=== PATIENT | male | born 1955 | race Caucasian/White ===

== ENCOUNTER 2017-11-25 08:25 | Inpatient (IN) | payer BC ==
[~2017-11-25] VITALS: Ht 188 cm; Wt 121.0 kg
[~2017-11-25 08:25] MED LIST: ACTOPLUS MET1 TABLE1 PO; ASPIRIN81 M2 PO; AVAPRO75 MG PO; ISTALOL5 ML LEFT EYE; LATANOPROST 0.7.5 ML BOTH EYES; MOTRIN800 MG PO; XARELTO20 MG PO; ZOCOR40 MG PO
[2017-12-23] MEDS ORDERED: TOPROL XL50 MG PO (06:00)
[2017-12-23] MEDS ORDERED: AVAPRO75 MG PO (06:00)
[2017-12-23 06:19] VITALS: BP 114/71
[2017-12-23 10:26] LABS: MCHC 32.5 G/DL (30.0-36.0); MCV 92.2 FL (86-99); PLATELET COUNT 215 K/uL (156-360); RBC DIS.WIDTH-CV 13.6 % (11.8-14.6); RBC DIS.WIDTH-SD 46.5 % (39-53); RED BLOOD COUNT 4.34 M/uL (4.00-5.50); WHITE BLOOD COUNT 5.2 K/uL (4.1-10.2)
[2017-12-23 12:15] VITALS: BP 116/68
[2017-12-23 13:32] LABS: INTER. NORMALIZED RATIO 1.2
[2017-12-23 16:04] VITALS: BP 108/55
[2017-12-23 19:36] VITALS: BP 119/69
[2017-12-24] VITALS (7 sets, daily range): BP systolic 113–136; BP diastolic 56–77
[2017-12-24 06:11] LABS: INTER. NORMALIZED RATIO 1.2
[2017-12-24 06:16] LABS: HEMATOCRIT 42.7 % (38.0-50.0); HEMOGLOBIN 13.9 G/DL (12.5-16.6); MCV 90.9 FL (86-99)
[2017-12-24 06:34] LABS: CHLORIDE 101 MEQ/L (99-109); CREATININE 0.9 MG/DL (0.6-1.3); GFR ESTIMATE (CALCULATED) > 59 mL/min/ (58.99-99999); GLUCOSE 124 mg/dL (70-99); POTASSIUM 4.1 MEQ/L (3.7-5.4); SODIUM 136 MEQ/L (136-147); UREA NITROGEN (BUN) 11 mg/dL (9-23)
[2017-12-25 03:30] VITALS: BP 108/64
[2017-12-25 06:17] LABS: HEMATOCRIT 39.8 % (38.0-50.0); MCV 91.1 FL (86-99)
[2017-12-25 06:20] LABS: INTER. NORMALIZED RATIO 1.6
[2017-12-25 08:12] VITALS: BP 108/66
[2017-12-25] MEDS ORDERED: COUMADIN1 MG PO (08:27)
[2017-12-25] MEDS ORDERED: OXYCODONE HCL5 MG PO (08:27)
[2017-12-25] MEDS ORDERED: OXYCONTIN10 MG PO (08:27)
[2017-12-25 12:00] VITALS: BP 132/70
== END 2017-12-25 15:40 | DRG 470 ==
LOC: 2SOUTH 08:25 → ENRESERV 12-22 22:01 → 2SOUTH 12-23 05:29 → 3WEST 12-23 05:29 → ENRESERV 12-23 10:10 → 2SOUTH 12-23 10:51 → 3WEST 12-23 12:02
PROVIDERS: Orthopaedic Surgery
PROC: 0SRC0J9 Replacement of Right Knee Joint with Synthetic Substitute, Cemented, Open Approach (ICD-10-PCS; principal; 2017-12-23)
DX: M17.11 Unilateral primary osteoarthritis, right knee (principal); I48.91 Unspecified atrial fibrillation; I10 Essential (primary) hypertension; E11.9 Type 2 diabetes mellitus without complications; E78.00 Pure hypercholesterolemia, unspecified; H40.9 Unspecified glaucoma; Z79.84 Long term (current) use of oral hypoglycemic drugs; Z79.01 Long term (current) use of anticoagulants
CPT/HCPCS: 73560; 80048; 82948; 85014; 85018; 85027; 85610; C1713; J0330; J0690; J1170; J2250; J7030; J7050; S0020